=== PATIENT | female | born 1980 | race Caucasian/White ===

== ENCOUNTER 2016-12-22 18:46 | Inpatient (IN) | payer MEDICAID ==
[~2016-12-22] VITALS: Ht 147.3 cm; Wt 59.2 kg
[2016-12-22] MEDS ORDERED: LACTATED RINGER'S 1,000 ML IV SCH (19:37)
[2016-12-22 19:42] VITALS: Ht 147.3 cm; Wt 59.2 kg
[2016-12-22] MEDS ORDERED: LACTATED RINGER'S 1,000 ML IV PRN (20:00)
[2016-12-22] MEDS ORDERED: CARBOPROST 250 MCG INJ IM PRN (20:00)
[2016-12-22] MEDS ORDERED: METHYLERGONOVINE 0.2 MG INJ IM PRN (20:00)
[2016-12-22] MEDS ORDERED: BUTORPHANOL 2 MG INJ IV PRN (20:00)
[2016-12-22] MEDS ORDERED: OXYTOCIN 30 UNITS/LR 500 ML IV PRN (20:00)
[2016-12-22] MEDS ORDERED: LIDOCAINE 1% (MPF) 30 ML INJ INJ PRN (20:00)
[2016-12-22] MEDS ORDERED: OXYTOCIN 30 UNITS/LR 500 ML IV SCH (20:00)
[2016-12-22] MEDS ORDERED: AMPICILLIN 2 GM/NS (PMX) 100 ML IV ONE (20:00)
[2016-12-22] MEDS ORDERED: MISOPROSTOL 200 MCG TAB PR PRN (20:00)
[2016-12-22] MEDS ORDERED: ACETAMINOPHEN/CODEINE #3 TAB PO PRN (20:00)
[2016-12-22] MEDS ORDERED: IBUPROFEN 600 MG TAB PO PRN (20:00)
[2016-12-22 21:03] LABS: ADD SCAN DIFF NO
[2016-12-22 21:05] LABS: BASOPHIL # 0.1 10^3/ul (0.0-0.1); BASOPHILS % 0.6 % (0.0-2.0); EOSINOPHILS % 0.4 % (0.0-7.0); HEMATOCRIT 41.7 % (37.0-47.0); HEMOGLOBIN 13.3 g/dl (12.0-16.0); LYMPHOCYTES % 18.5 % (15.0-51.0); MEAN CORPUSCULAR HGB CONC 31.9 g/dl (32.0-37.0); MEAN CORPUSCULAR VOLUME 84.6 fl (82.0-101.0); MEAN PLATELET VOLUME 12.4 fl (7.4-10.4); MONOCYTE # 0.7 10^3/ul (0.3-0.9); MONOCYTES % 6.5 % (0.0-11.0); NEUTROPHIL # 7.9 10^3/ul (1.6-7.5); NEUTROPHILS % 73.4 % (39.0-77.0); PLATELET COUNT 176 10^3/UL (140-415); RED BLOOD COUNT 4.93 10^6/ul (4.20-5.40); RED CELL DISTRIBUTION WIDTH 14.3 % (11.5-14.5); WHITE BLOOD COUNT 10.8 10^3/ul (4.8-10.8)
[2016-12-22 21:23] LABS: INR 0.95; PROTIME 12.7 Sec (12.2-14.2)
[2016-12-22 21:24] LABS: PARTIAL THROMBOPLASTIN TIME 28.2 Sec (25.0-35.0)
--- NOTE | 2016-12-22 21:48 | HP ---
DATE OF ADMISSION: 12/22/2016 HISTORY OF PRESENT ILLNESS: Ms. Shayna Benton is a 36-year-old 3, para 2, intrauterine pre gnancy at 38 weeks gestational age, was admitted today secondary to labor. She denies any vaginal b leeding or discharge. She is 5 cm dilated at time of admission. care took place at [facility]. PAST MEDICAL HISTORY: GDM A1. MEDICATIONS: vitamins. PAST SURGICAL HISTORY: None. OBSTETRIC HISTORY: Vaginal deliveries x2. GYNECOLOGIC HISTORY: 13, regular 3 to 4 days. Denies any sexually transmitted diseases. Sexually active with 1 partner. SOCIAL HISTORY: Denies any smoking, drugs, or alcohol. FAMILY HISTORY: None. REVIEW OF SYSTEMS: All within normal except history of present illness. PHYSICAL EXAMINATION: HEENT: Within normal. LUNGS: CTA bilateral. CARDIOVASCULAR: S1, S2. Regular rhythm. ABDOMEN: Gravid, nontender. Negative CVA bilateral. EXTREMITIES: Negative edema. No calf tenderness. PELVIC: Vaginal exam 8 to 9, 90%, -1. Spontaneous rupture of membranes. heart tracing categ ory 1. [place]: Regular contractions. ASSESSMENT: Intrauterine at term in labor. PLAN: Expectant vaginal delivery. Dictated By: MALINDA MATA/HERMELINDA Conf#: [id number] DID#: [id number]
--- NOTE | 2016-12-22 21:51 | HP ---
DATE OF ADMISSION: 12/22/2016 HISTORY OF PRESENT ILLNESS: Ms. Shayna Benton is a 36-year-old 3, para 2, intrauterine pre gnancy at 38 weeks gestational age, admitted in labor. She denies any vaginal bleeding or discharge . Her care took place at [facility]. PAST MEDICAL HISTORY: GDM A1. MEDICATIONS: vitamins. PAST SURGICAL HISTORY: None. OBSTETRIC HISTORY: Vaginal deliveries x2. GYNECOLOGIC HISTORY: 13, regular 3 to 4 days. Denies any sexually transmitted diseases. Sexually active with 1 partner. SOCIAL HISTORY: Denies any smoking, drugs, or alcohol. FAMILY HISTORY: None. REVIEW OF SYSTEMS: All within normal limits, except for history of present illness. PHYSICAL EXAMINATION: HEENT: Within normal. LUNGS: CTA bilateral. CARDIOVASCULAR: S1, S2. Regular rhythm. ABDOMEN: Gravid, nontender. Negative CVA bilaterally. EXTREMITIES: Negative edema. No calf tenderness. PELVIC: Vaginal exam 8 to 9 cm dilated, 90% effaced, -1 station. heart tracing category 1. [place]: Regular contractions. ASSESSMENT: 1. Intrauterine at term in labor. 2. Advanced maternal age. 3. Gestational diabetes mellitus A1. PLAN: Expectant vaginal delivery. Dictated By: MALINDA MATA/HERMELINDA Conf#: [id number] DID#: [id number]
[2016-12-22] MEDS: OXYTOCIN 30 UNITS/LR 500 ML IV SCH ×2 (23:20→23:36)
[2016-12-22] MEDS ORDERED: LACTATED RINGER'S 1,000 ML IV* SCH (23:37)
--- NOTE | 2016-12-22 23:37 | LDN ---
Date/Time of Note Date/Time of Note DATE: 12/22/16 TIME: 23:35 Delivery Summary Weeks of Gestation Placenta Delivered: Spontaneously Meconium: none Episiotomy: Yes Indication for episiotomy distress Laceration repair: rmle repaired with 2-0 and 3-0 chromic Estimated blood loss: 250 Sponge & Needle done & correct: Yes All needle counts correct: Yes Any foreign bodies felt in the: No Problems: Infant Delivery Information Sex Sex: female Apgars 1 Minute: 9 5 Minute: 9 Suctioning Nose & mouth suctioned at kennedi: Yes Delee suction performed: Yes Umbilical Cord Umbilical cord with: 3 Vessels Cord presentations: nuchal cord Nuchal cord present X: 1 Cord Blood was obtained: Yes MALINDA PUGA MD Dec 22, 2016 23:37
[2016-12-23] MEDS ORDERED: ONDANSETRON 4 MG INJ IV PRN
[2016-12-23] MEDS ORDERED: SENNA/DOCUSATE NA (8.6MG/50MG) TAB PO PRN
[2016-12-23] MEDS ORDERED: METHYLERGONOVINE 0.2 MG INJ IM PRN
[2016-12-23] MEDS ORDERED: CARBOPROST 250 MCG INJ IM PRN
[2016-12-23] MEDS ORDERED: BENZOCAINE 20% 56 ML SPRAY TOP PRN
[2016-12-23] MEDS ORDERED: DIBUCAINE 1% 30 GM OINT PR PRN
[2016-12-23] MEDS ORDERED: MISOPROSTOL 200 MCG TAB PR PRN
[2016-12-23] MEDS ORDERED: OXYCODONE/ASPIRIN (4.88/325) TAB PO PRN ×2
[2016-12-23] MEDS ORDERED: OXYTOCIN 30 UNITS/LR 500 ML IV PRN
[2016-12-23] MEDS ORDERED: WITCH HAZEL/GLYCERIN PAD PR PRN
[2016-12-23] MEDS ORDERED: AMPICILLIN 1 GM/NS (PMX) 50 ML IV SCH
[2016-12-23] MEDS: IBUPROFEN 600 MG TAB PO SCH ×4 (00:31→17:30)
[2016-12-23 03:30] VITALS: BP 91/50; PULSE 66; RESP 18
[2016-12-23] MEDS ORDERED: ACCU-CHEK XX SCH (06:00)
[2016-12-23 07:45] VITALS: BP 109/56; PULSE 75; RESP 18
[2016-12-23 07:45] LABS: ADD SCAN DIFF NO
[2016-12-23 08:01] LABS: BASOPHIL # 0.1 10^3/ul (0.0-0.1); BASOPHILS % 0.3 % (0.0-2.0); HEMATOCRIT 35.4 % (37.0-47.0); HEMOGLOBIN 11.3 g/dl (12.0-16.0); LYMPHOCYTES # 1.8 10^3/ul (0.8-2.9); LYMPHOCYTES % 11.3 % (15.0-51.0); MEAN CORPUSCULAR HEMOGLOBIN 26.7 pg (29.0-33.0); MEAN CORPUSCULAR HGB CONC 31.9 g/dl (32.0-37.0); MEAN CORPUSCULAR VOLUME 83.7 fl (82.0-101.0); MEAN PLATELET VOLUME 12.5 fl (7.4-10.4); MONOCYTE # 1.1 10^3/ul (0.3-0.9); MONOCYTES % 6.6 % (0.0-11.0); NEUTROPHIL # 12.9 10^3/ul (1.6-7.5); NEUTROPHILS % 81.2 % (39.0-77.0); PLATELET COUNT 183 10^3/UL (140-415); RED BLOOD COUNT 4.23 10^6/ul (4.20-5.40); RED CELL DISTRIBUTION WIDTH 14.2 % (11.5-14.5); WHITE BLOOD COUNT 15.9 10^3/ul (4.8-10.8)
[2016-12-23] MEDS: SENNA/DOCUSATE NA (8.6MG/50MG) TAB PO SCH ×2 (08:25→20:26)
[2016-12-23 16:23] VITALS: BP 104/57; PULSE 74; RESP 19
--- NOTE | 2016-12-23 19:07 | QN ---
Documentation Comment patient seen and evaluated no complaints vs stable afebrile ab soft nt uterine fundus below umbillicus extremity no edema no calf tenderss a/ sp vaginal delivery pp 1 doing well p/ cbc in am d/c home tomorrow MALINDA PUGA MD Dec 23, 2016 19:07
[2016-12-23 19:45] VITALS: BP 103/58; PULSE 70; RESP 18
[2016-12-24] VITALS: BP 90/52; PULSE 67; RESP 19
[2016-12-24] MEDS: IBUPROFEN 600 MG TAB PO SCH ×3 (00:06→12:37)
[2016-12-24 04:15] VITALS: BP 93/57; PULSE 59; RESP 19
[2016-12-24 07:56] LABS: ADD SCAN DIFF NO
[2016-12-24 08:00] VITALS: BP 105/63; PULSE 70; RESP 18
[2016-12-24 08:03] LABS: BASOPHIL # 0.1 10^3/ul (0.0-0.1); BASOPHILS % 0.9 % (0.0-2.0); EOSINOPHILS # 0.1 10^3/ul (0.0-0.5); EOSINOPHILS % 0.9 % (0.0-7.0); HEMOGLOBIN 11.7 g/dl (12.0-16.0); LYMPHOCYTES # 2.5 10^3/ul (0.8-2.9); LYMPHOCYTES % 19.6 % (15.0-51.0); MEAN CORPUSCULAR HGB CONC 31.6 g/dl (32.0-37.0); MEAN CORPUSCULAR VOLUME 85.3 fl (82.0-101.0); MEAN PLATELET VOLUME 12.2 fl (7.4-10.4); MONOCYTE # 0.9 10^3/ul (0.3-0.9); MONOCYTES % 7.3 % (0.0-11.0); NEUTROPHIL # 9.1 10^3/ul (1.6-7.5); NEUTROPHILS % 70.9 % (39.0-77.0); PLATELET COUNT 199 10^3/UL (140-415); RED BLOOD COUNT 4.34 10^6/ul (4.20-5.40); RED CELL DISTRIBUTION WIDTH 14.4 % (11.5-14.5); WHITE BLOOD COUNT 12.8 10^3/ul (4.8-10.8)
[2016-12-24] MEDS: SENNA/DOCUSATE NA (8.6MG/50MG) TAB PO SCH (09:00)
== END 2016-12-24 13:50 | disposition home or self-care (01) | DRG 775 ==
LOC: OBT 18:46 → L-D 18:47 → OBT 19:45 → L-D 19:45 → PP1 12-23 01:25
PROVIDERS: ADMIT Obstetrics & Gynecology; ATTEND Obstetrics & Gynecology
PROC: 10E0XZZ Delivery of Products of Conception, External Approach (ICD-10-PCS; principal; 2016-12-22)
PROC: 0W8NXZZ Division of Female Perineum, External Approach (ICD-10-PCS; 2016-12-22)
DX: O24.420 Gestational diabetes mellitus in childbirth, diet controlled (principal); O36.8930 Maternal care for other specified fetal problems, third trimester, not applicable or unspecified; Z3A.38 38 weeks gestation of pregnancy; Z37.0 Single live birth; O69.81X0 Labor and delivery complicated by cord around neck, without compression, not applicable or unspecified
CPT/HCPCS: 82947; 82962; 85025; 85610; 85730; 86592; 86900; 86901; 87340; G0463; J0290; J7120